=== PATIENT | female | born 1955 | race Two or more races ===

== ENCOUNTER 2019-12-21 07:55 | Outpatient (CLI) | payer OTHER ==
[~2019-12-21 07:55] MED LIST: AMARYL; CATAFLAM50 MG PO; COZAAR50 MG; COZAAR50 MG PO; DECADRON P4 MG/ML-1M IH; FLEXERIL10 MG PO; HUMALOG MI100 UNIT/1; HUMALOG MIX 75/10 ML; HUMALOG MIX 75/10 ML SUBCUTANEO; HUMALOG100 U/ML; HUMALOG100 U/ML SUBCUTANEO; INTESTINEX680 MG PO; LANTUS100 U/ML; LANTUS100 U/ML SUBCUTANEO; NAPR500T14 PO; NEURON; NEURONTIN300 MG PO; NEURONTIN600 MG PO; NOVOLOG100 U/ML; TORADOL60 MG IM; ZANTAC300 MG PO
== END 2019-12-21 15:10 | disposition home or self-care (01) ==
LOC: LAB 07:55
DX: M54.5 Low back pain (principal); E78.89 Other lipoprotein metabolism disorders; E03.8 Other specified hypothyroidism; M89.8X8 Other specified disorders of bone, other site; E11.51 Type 2 diabetes mellitus with diabetic peripheral angiopathy without gangrene; G62.89 Other specified polyneuropathies; E11.42 Type 2 diabetes mellitus with diabetic polyneuropathy; K21.9 Gastro-esophageal reflux disease without esophagitis; M54.14 Radiculopathy, thoracic region; F41.8 Other specified anxiety disorders; E11.65 Type 2 diabetes mellitus with hyperglycemia; G99.0 Autonomic neuropathy in diseases classified elsewhere; E11.319 Type 2 diabetes mellitus with unspecified diabetic retinopathy without macular edema; G83.4 Cauda equina syndrome; F39 Unspecified mood [affective] disorder; F32.1 Major depressive disorder, single episode, moderate; I11.9 Hypertensive heart disease without heart failure; I13.10 Hypertensive heart and chronic kidney disease without heart failure, with stage 1 through stage 4 chronic kidney disease, or unspecified chronic kidney disease; Z79.82 Long term (current) use of aspirin; Z79.84 Long term (current) use of oral hypoglycemic drugs; N18.3 Chronic kidney disease, stage 3 (moderate); Z13.5 Encounter for screening for eye and ear disorders; Z12.11 Encounter for screening for malignant neoplasm of colon; Z01.00 Encounter for examination of eyes and vision without abnormal findings; Z01.01 Encounter for examination of eyes and vision with abnormal findings; Z12.31 Encounter for screening mammogram for malignant neoplasm of breast; Z13.820 Encounter for screening for osteoporosis; N64.4 Mastodynia

== ENCOUNTER 2019-12-22 10:06 | Outpatient (CLI) | payer OTHER | END 2019-12-22 10:43 | disposition home or self-care (01) | LOC: NUCLEAR 10:06 | DX: M81.0 Age-related osteoporosis without current pathological fracture (principal); M54.5 Low back pain; I10 Essential (primary) hypertension; E78.89 Other lipoprotein metabolism disorders; E03.8 Other specified hypothyroidism; M89.8X0 Other specified disorders of bone, multiple sites; E11.9 Type 2 diabetes mellitus without complications; E11.51 Type 2 diabetes mellitus with diabetic peripheral angiopathy without gangrene; G62.89 Other specified polyneuropathies; E11.42 Type 2 diabetes mellitus with diabetic polyneuropathy; K21.9 Gastro-esophageal reflux disease without esophagitis; M54.14 Radiculopathy, thoracic region; F41.8 Other specified anxiety disorders; Z79.82 Long term (current) use of aspirin; Z79.84 Long term (current) use of oral hypoglycemic drugs; Z01.01 Encounter for examination of eyes and vision with abnormal findings ==

== ENCOUNTER → 2019-12-22 10:10 | Outpatient (CLI) | payer OTHER | END | disposition home or self-care (01) | LOC: LAB 10:10 | DX: M54.5 Low back pain (principal); E78.89 Other lipoprotein metabolism disorders; E03.8 Other specified hypothyroidism; M89.8X8 Other specified disorders of bone, other site; E11.51 Type 2 diabetes mellitus with diabetic peripheral angiopathy without gangrene; G62.89 Other specified polyneuropathies; E11.42 Type 2 diabetes mellitus with diabetic polyneuropathy; K21.9 Gastro-esophageal reflux disease without esophagitis; M54.14 Radiculopathy, thoracic region; F41.8 Other specified anxiety disorders; E11.65 Type 2 diabetes mellitus with hyperglycemia; Z79.4 Long term (current) use of insulin; G99.0 Autonomic neuropathy in diseases classified elsewhere; E11.319 Type 2 diabetes mellitus with unspecified diabetic retinopathy without macular edema; G83.4 Cauda equina syndrome; F39 Unspecified mood [affective] disorder; F32.1 Major depressive disorder, single episode, moderate; I11.9 Hypertensive heart disease without heart failure; I13.10 Hypertensive heart and chronic kidney disease without heart failure, with stage 1 through stage 4 chronic kidney disease, or unspecified chronic kidney disease; Z79.82 Long term (current) use of aspirin; N18.3 Chronic kidney disease, stage 3 (moderate); Z13.5 Encounter for screening for eye and ear disorders; Z12.11 Encounter for screening for malignant neoplasm of colon; Z01.00 Encounter for examination of eyes and vision without abnormal findings; Z01.01 Encounter for examination of eyes and vision with abnormal findings; Z12.31 Encounter for screening mammogram for malignant neoplasm of breast; Z13.820 Encounter for screening for osteoporosis; N64.4 Mastodynia ==

== ENCOUNTER 2019-12-22 11:25 | Outpatient (CLI) | payer OTHER | END 2019-12-22 11:29 | disposition home or self-care (01) | LOC: MAMO-SONO 11:25 | DX: I10 Essential (primary) hypertension (principal); M54.5 Low back pain; E78.89 Other lipoprotein metabolism disorders; E03.8 Other specified hypothyroidism; M89.8X8 Other specified disorders of bone, other site; E11.51 Type 2 diabetes mellitus with diabetic peripheral angiopathy without gangrene; G62.89 Other specified polyneuropathies; E11.42 Type 2 diabetes mellitus with diabetic polyneuropathy; K21.9 Gastro-esophageal reflux disease without esophagitis; M54.14 Radiculopathy, thoracic region; F41.8 Other specified anxiety disorders; Z12.31 Encounter for screening mammogram for malignant neoplasm of breast ==

== ENCOUNTER 2020-01-20 07:57 | Outpatient (CLI) | payer OTHER | END 2020-01-20 08:02 | disposition home or self-care (01) | LOC: SONOGRAMA 07:57 | DX: R10.84 Generalized abdominal pain (principal); N18.3 Chronic kidney disease, stage 3 (moderate); R31.29 Other microscopic hematuria ==

== ENCOUNTER → 2020-03-13 07:57 | Outpatient (CLI) | payer OTHER | END | disposition home or self-care (01) | LOC: LAB 07:57 | DX: E11.21 Type 2 diabetes mellitus with diabetic nephropathy (principal); D63.1 Anemia in chronic kidney disease; N30.00 Acute cystitis without hematuria; E03.8 Other specified hypothyroidism; E43 Unspecified severe protein-calorie malnutrition ==

== ENCOUNTER 2020-04-01 08:58 | Outpatient (CLI) | payer OTHER | END 2020-04-01 09:03 | disposition home or self-care (01) | LOC: LAB 08:58 | DX: M54.5 Low back pain (principal); E78.89 Other lipoprotein metabolism disorders; E03.8 Other specified hypothyroidism; M89.8X8 Other specified disorders of bone, other site; E11.51 Type 2 diabetes mellitus with diabetic peripheral angiopathy without gangrene; G62.89 Other specified polyneuropathies; E11.42 Type 2 diabetes mellitus with diabetic polyneuropathy; K21.9 Gastro-esophageal reflux disease without esophagitis; M54.14 Radiculopathy, thoracic region; F41.8 Other specified anxiety disorders; E11.65 Type 2 diabetes mellitus with hyperglycemia; Z79.4 Long term (current) use of insulin; G99.0 Autonomic neuropathy in diseases classified elsewhere; E11.319 Type 2 diabetes mellitus with unspecified diabetic retinopathy without macular edema; G83.4 Cauda equina syndrome; F39 Unspecified mood [affective] disorder; F32.1 Major depressive disorder, single episode, moderate; I11.9 Hypertensive heart disease without heart failure; I13.10 Hypertensive heart and chronic kidney disease without heart failure, with stage 1 through stage 4 chronic kidney disease, or unspecified chronic kidney disease; Z79.82 Long term (current) use of aspirin; N18.3 Chronic kidney disease, stage 3 (moderate); Z13.5 Encounter for screening for eye and ear disorders; Z12.11 Encounter for screening for malignant neoplasm of colon; Z01.00 Encounter for examination of eyes and vision without abnormal findings; Z12.31 Encounter for screening mammogram for malignant neoplasm of breast; Z13.820 Encounter for screening for osteoporosis; N64.4 Mastodynia ==

== ENCOUNTER 2020-06-20 08:04 | Outpatient (CLI) | payer OTHER | END 2020-06-20 15:00 | disposition home or self-care (01) | LOC: LAB 08:04 | PROVIDERS: ATTEND Specialist/Technologist, Other Nephrology | DX: E78.49 Other hyperlipidemia (principal); N18.3 Chronic kidney disease, stage 3 (moderate); E11.21 Type 2 diabetes mellitus with diabetic nephropathy; D63.1 Anemia in chronic kidney disease; N30.00 Acute cystitis without hematuria; E03.0 Congenital hypothyroidism with diffuse goiter ==

== ENCOUNTER 2020-06-24 10:17 | Outpatient (CLI) | payer OTHER | END 2020-06-24 12:07 | disposition home or self-care (01) | LOC: LAB 10:17 | PROVIDERS: ATTEND Specialist/Technologist, Other Nephrology | DX: N18.5 Chronic kidney disease, stage 5 (principal); Z12.89 Encounter for screening for malignant neoplasm of other sites; D63.1 Anemia in chronic kidney disease ==

== ENCOUNTER 2020-08-11 08:25 | Outpatient (CLI) | payer OTHER | END 2020-08-11 08:37 | disposition home or self-care (01) | LOC: LAB 08:25 | PROVIDERS: ATTEND Specialist/Technologist, Other Nephrology | DX: E78.89 Other lipoprotein metabolism disorders (principal); M54.5 Low back pain; E03.8 Other specified hypothyroidism; M89.8X8 Other specified disorders of bone, other site; E11.51 Type 2 diabetes mellitus with diabetic peripheral angiopathy without gangrene; G62.89 Other specified polyneuropathies; E11.42 Type 2 diabetes mellitus with diabetic polyneuropathy; K21.9 Gastro-esophageal reflux disease without esophagitis; M54.14 Radiculopathy, thoracic region; F41.8 Other specified anxiety disorders; E11.65 Type 2 diabetes mellitus with hyperglycemia; Z79.4 Long term (current) use of insulin; G99.0 Autonomic neuropathy in diseases classified elsewhere; E11.319 Type 2 diabetes mellitus with unspecified diabetic retinopathy without macular edema; G83.4 Cauda equina syndrome; F34.89 Other specified persistent mood disorders; F32.1 Major depressive disorder, single episode, moderate; I11.9 Hypertensive heart disease without heart failure; Z79.82 Long term (current) use of aspirin; Z79.84 Long term (current) use of oral hypoglycemic drugs; N18.3 Chronic kidney disease, stage 3 (moderate); Z13.5 Encounter for screening for eye and ear disorders; Z12.11 Encounter for screening for malignant neoplasm of colon; Z01.00 Encounter for examination of eyes and vision without abnormal findings; Z01.01 Encounter for examination of eyes and vision with abnormal findings; Z12.31 Encounter for screening mammogram for malignant neoplasm of breast; Z13.820 Encounter for screening for osteoporosis; N64.4 Mastodynia; E11.21 Type 2 diabetes mellitus with diabetic nephropathy; D63.1 Anemia in chronic kidney disease; N30.00 Acute cystitis without hematuria ==

== ENCOUNTER → 2020-09-22 | Outpatient (CLI) | payer OTHER | END | disposition home or self-care (01) | LOC: MAMO-SONO 07:15 → SONOGRAMA 07:26 | PROVIDERS: ATTEND Specialist/Technologist, Other Nephrology | DX: R10.84 Generalized abdominal pain (principal); D25.9 Leiomyoma of uterus, unspecified; R31.29 Other microscopic hematuria; N18.30 Chronic kidney disease, stage 3 unspecified ==

== ENCOUNTER → 2020-09-29 08:20 | Outpatient (CLI) | payer OTHER | END | disposition home or self-care (01) | LOC: LAB 08:20 | PROVIDERS: ATTEND Internal Medicine Hematology & Oncology | DX: E11.22 Type 2 diabetes mellitus with diabetic chronic kidney disease (principal); D63.1 Anemia in chronic kidney disease; D63.8 Anemia in other chronic diseases classified elsewhere; N18.5 Chronic kidney disease, stage 5; I12.0 Hypertensive chronic kidney disease with stage 5 chronic kidney disease or end stage renal disease ==

== ENCOUNTER 2020-10-11 08:51 | Outpatient (CLI) | payer OTHER | END 2020-10-11 15:00 | disposition home or self-care (01) | LOC: LAB 08:51 | PROVIDERS: ATTEND Specialist/Technologist, Other Nephrology | DX: E03.8 Other specified hypothyroidism (principal); E11.21 Type 2 diabetes mellitus with diabetic nephropathy; D63.1 Anemia in chronic kidney disease; N30.00 Acute cystitis without hematuria ==

== ENCOUNTER 2020-11-21 08:43 | Outpatient (CLI) | payer OTHER | END 2020-11-21 08:50 | disposition home or self-care (01) | LOC: LAB 08:43 | PROVIDERS: ATTEND Internal Medicine | DX: E03.8 Other specified hypothyroidism (principal); M54.5 Low back pain; E78.89 Other lipoprotein metabolism disorders; M89.8X8 Other specified disorders of bone, other site; E11.51 Type 2 diabetes mellitus with diabetic peripheral angiopathy without gangrene; G62.89 Other specified polyneuropathies; E11.42 Type 2 diabetes mellitus with diabetic polyneuropathy; K21.9 Gastro-esophageal reflux disease without esophagitis; M54.14 Radiculopathy, thoracic region; F41.8 Other specified anxiety disorders; E11.65 Type 2 diabetes mellitus with hyperglycemia; G99.0 Autonomic neuropathy in diseases classified elsewhere; E11.319 Type 2 diabetes mellitus with unspecified diabetic retinopathy without macular edema; G83.4 Cauda equina syndrome; F34.89 Other specified persistent mood disorders; F32.1 Major depressive disorder, single episode, moderate; I11.9 Hypertensive heart disease without heart failure; I13.10 Hypertensive heart and chronic kidney disease without heart failure, with stage 1 through stage 4 chronic kidney disease, or unspecified chronic kidney disease; Z79.82 Long term (current) use of aspirin; Z79.84 Long term (current) use of oral hypoglycemic drugs; Z13.5 Encounter for screening for eye and ear disorders; Z12.11 Encounter for screening for malignant neoplasm of colon; Z01.00 Encounter for examination of eyes and vision without abnormal findings; Z12.31 Encounter for screening mammogram for malignant neoplasm of breast; Z13.820 Encounter for screening for osteoporosis; N64.4 Mastodynia ==

== ENCOUNTER 2020-12-20 08:37 | Outpatient (CLI) | payer OTHER | END 2020-12-20 08:42 | disposition home or self-care (01) | LOC: LAB 08:37 | PROVIDERS: ATTEND Internal Medicine Hematology & Oncology | DX: E11.22 Type 2 diabetes mellitus with diabetic chronic kidney disease (principal); D63.1 Anemia in chronic kidney disease; D63.8 Anemia in other chronic diseases classified elsewhere; M05.89 Other rheumatoid arthritis with rheumatoid factor of multiple sites; I12.9 Hypertensive chronic kidney disease with stage 1 through stage 4 chronic kidney disease, or unspecified chronic kidney disease ==

== ENCOUNTER → 2020-12-28 09:42 | Outpatient (CLI) | payer OTHER | END | disposition home or self-care (01) | LOC: LAB 09:42 | PROVIDERS: ATTEND Internal Medicine Hematology & Oncology | DX: D50.8 Other iron deficiency anemias (principal) ==

== ENCOUNTER 2021-01-23 08:25 | Outpatient (CLI) | payer OTHER | END 2021-01-23 09:39 | disposition home or self-care (01) | LOC: LAB 08:25 | PROVIDERS: ATTEND Specialist/Technologist, Other Nephrology | DX: N11.8 Other chronic tubulo-interstitial nephritis (principal); E11.21 Type 2 diabetes mellitus with diabetic nephropathy; E21.3 Hyperparathyroidism, unspecified; D63.1 Anemia in chronic kidney disease; N30.00 Acute cystitis without hematuria; E03.8 Other specified hypothyroidism; B96.29 Other Escherichia coli [E. coli] as the cause of diseases classified elsewhere ==

== ENCOUNTER 2021-02-13 08:19 | Outpatient (CLI) | payer OTHER | END 2021-02-13 08:24 | disposition home or self-care (01) | LOC: LAB 08:19 | PROVIDERS: ATTEND Internal Medicine Hematology & Oncology | DX: D64.89 Other specified anemias (principal) ==

== ENCOUNTER 2021-02-20 08:19 | Outpatient (CLI) | payer OTHER | END 2021-02-20 08:20 | disposition home or self-care (01) | LOC: LAB 08:19 | PROVIDERS: ATTEND Internal Medicine Cardiovascular Disease | DX: E78.89 Other lipoprotein metabolism disorders (principal); E11.8 Type 2 diabetes mellitus with unspecified complications ==

== ENCOUNTER 2021-02-22 08:16 | Outpatient (CLI) | payer OTHER | END 2021-02-22 08:17 | disposition home or self-care (01) | LOC: LAB 08:16 | PROVIDERS: ATTEND Internal Medicine | DX: N18.4 Chronic kidney disease, stage 4 (severe) (principal); F32.1 Major depressive disorder, single episode, moderate; F39 Unspecified mood [affective] disorder; I11.9 Hypertensive heart disease without heart failure; I13.10 Hypertensive heart and chronic kidney disease without heart failure, with stage 1 through stage 4 chronic kidney disease, or unspecified chronic kidney disease; Z79.82 Long term (current) use of aspirin; K21.9 Gastro-esophageal reflux disease without esophagitis; M54.14 Radiculopathy, thoracic region; M54.5 Low back pain; G83.4 Cauda equina syndrome; G99.0 Autonomic neuropathy in diseases classified elsewhere; E03.8 Other specified hypothyroidism; Z79.4 Long term (current) use of insulin ==

== ENCOUNTER → 2021-05-09 08:21 | Outpatient (CLI) | payer OTHER | END | disposition home or self-care (01) | LOC: LAB 08:21 | PROVIDERS: ATTEND Specialist/Technologist, Other Nephrology | DX: E11.21 Type 2 diabetes mellitus with diabetic nephropathy (principal); D63.1 Anemia in chronic kidney disease; N30.00 Acute cystitis without hematuria; E03.9 Hypothyroidism, unspecified ==

== ENCOUNTER 2021-05-28 09:46 | Outpatient (CLI) | payer OTHER | END 2021-05-28 09:48 | disposition home or self-care (01) | LOC: LAB 09:46 | PROVIDERS: ATTEND Internal Medicine | DX: I11.9 Hypertensive heart disease without heart failure (principal); N18.4 Chronic kidney disease, stage 4 (severe); I13.10 Hypertensive heart and chronic kidney disease without heart failure, with stage 1 through stage 4 chronic kidney disease, or unspecified chronic kidney disease; E74.89 Other specified disorders of carbohydrate metabolism; N18.31 Chronic kidney disease, stage 3a; K21.9 Gastro-esophageal reflux disease without esophagitis; M54.14 Radiculopathy, thoracic region; E78.89 Other lipoprotein metabolism disorders; M54.5 Low back pain; G99.0 Autonomic neuropathy in diseases classified elsewhere; E03.8 Other specified hypothyroidism; Z79.4 Long term (current) use of insulin; D63.8 Anemia in other chronic diseases classified elsewhere; N18.6 End stage renal disease; I12.9 Hypertensive chronic kidney disease with stage 1 through stage 4 chronic kidney disease, or unspecified chronic kidney disease ==

== ENCOUNTER 2021-07-18 08:47 | Outpatient (CLI) | payer OTHER | END 2021-07-18 08:48 | disposition home or self-care (01) | LOC: LAB 08:47 | PROVIDERS: ATTEND Internal Medicine Hematology & Oncology | DX: D50.8 Other iron deficiency anemias (principal) ==

== ENCOUNTER → 2021-08-15 08:29 | Outpatient (CLI) | payer OTHER | END | disposition home or self-care (01) | LOC: LAB 08:29 | PROVIDERS: ATTEND Internal Medicine | DX: E03.8 Other specified hypothyroidism (principal); N18.4 Chronic kidney disease, stage 4 (severe); I11.9 Hypertensive heart disease without heart failure; I13.10 Hypertensive heart and chronic kidney disease without heart failure, with stage 1 through stage 4 chronic kidney disease, or unspecified chronic kidney disease; E74.89 Other specified disorders of carbohydrate metabolism; Z79.84 Long term (current) use of oral hypoglycemic drugs; E78.89 Other lipoprotein metabolism disorders; K21.9 Gastro-esophageal reflux disease without esophagitis; M54.14 Radiculopathy, thoracic region; M54.59 Other low back pain; G99.0 Autonomic neuropathy in diseases classified elsewhere; Z12.11 Encounter for screening for malignant neoplasm of colon; Z79.4 Long term (current) use of insulin; D63.8 Anemia in other chronic diseases classified elsewhere; N18.6 End stage renal disease; I12.9 Hypertensive chronic kidney disease with stage 1 through stage 4 chronic kidney disease, or unspecified chronic kidney disease; E55.9 Vitamin D deficiency, unspecified ==

== ENCOUNTER → 2021-08-16 09:03 | Outpatient (CLI) | payer OTHER | END | disposition home or self-care (01) | LOC: LAB 09:03 | PROVIDERS: ATTEND Emergency Medicine Pediatric Emergency Medicine | DX: I11.9 Hypertensive heart disease without heart failure (principal); N18.4 Chronic kidney disease, stage 4 (severe); I13.10 Hypertensive heart and chronic kidney disease without heart failure, with stage 1 through stage 4 chronic kidney disease, or unspecified chronic kidney disease; E74.89 Other specified disorders of carbohydrate metabolism; N18.30 Chronic kidney disease, stage 3 unspecified; E78.89 Other lipoprotein metabolism disorders; K21.9 Gastro-esophageal reflux disease without esophagitis; M54.14 Radiculopathy, thoracic region; M54.59 Other low back pain; G99.0 Autonomic neuropathy in diseases classified elsewhere; E03.8 Other specified hypothyroidism; Z79.4 Long term (current) use of insulin; D63.8 Anemia in other chronic diseases classified elsewhere; N18.6 End stage renal disease; I12.9 Hypertensive chronic kidney disease with stage 1 through stage 4 chronic kidney disease, or unspecified chronic kidney disease; Z12.11 Encounter for screening for malignant neoplasm of colon ==

== ENCOUNTER 2021-08-22 08:24 | Outpatient (CLI) | payer OTHER | END 2021-08-22 08:30 | disposition home or self-care (01) | LOC: LAB 08:24 | PROVIDERS: ATTEND Specialist/Technologist, Other Nephrology | DX: E03.8 Other specified hypothyroidism (principal); E78.49 Other hyperlipidemia; I12.9 Hypertensive chronic kidney disease with stage 1 through stage 4 chronic kidney disease, or unspecified chronic kidney disease; E11.21 Type 2 diabetes mellitus with diabetic nephropathy; D63.1 Anemia in chronic kidney disease; N30.00 Acute cystitis without hematuria ==

== ENCOUNTER → 2021-09-05 08:36 | Outpatient (CLI) | payer OTHER | END | disposition home or self-care (01) | LOC: LAB 08:36 | PROVIDERS: ATTEND Internal Medicine Hematology & Oncology | DX: D63.8 Anemia in other chronic diseases classified elsewhere (principal); N18.5 Chronic kidney disease, stage 5; D50.8 Other iron deficiency anemias; I12.9 Hypertensive chronic kidney disease with stage 1 through stage 4 chronic kidney disease, or unspecified chronic kidney disease; E11.22 Type 2 diabetes mellitus with diabetic chronic kidney disease ==

== ENCOUNTER 2021-10-16 08:24 | Outpatient (CLI) | payer OTHER | END 2021-10-16 08:26 | disposition home or self-care (01) | LOC: LAB 08:24 | PROVIDERS: ATTEND Internal Medicine Hematology & Oncology | DX: D63.8 Anemia in other chronic diseases classified elsewhere (principal); D50.8 Other iron deficiency anemias ==

== ENCOUNTER → 2021-10-23 08:46 | Outpatient (CLI) | payer OTHER | END | disposition home or self-care (01) | LOC: LAB 08:46 | PROVIDERS: ATTEND Specialist/Technologist, Other Nephrology | DX: E78.49 Other hyperlipidemia (principal); E21.3 Hyperparathyroidism, unspecified; N18.30 Chronic kidney disease, stage 3 unspecified; E11.21 Type 2 diabetes mellitus with diabetic nephropathy; E63.1 Imbalance of constituents of food intake; N30.00 Acute cystitis without hematuria; E03.8 Other specified hypothyroidism; I12.9 Hypertensive chronic kidney disease with stage 1 through stage 4 chronic kidney disease, or unspecified chronic kidney disease ==

== ENCOUNTER 2021-11-11 15:02 | Inpatient (IN) | payer OTHER | END 2021-11-21 15:14 | DRG 65 | LOC: ER 15:02 → ICU-2 11-12 11:19 → MEDI 11-18 21:01 → MEDJ 11-20 22:22 | PROVIDERS: ADMIT Internal Medicine; ATTEND Internal Medicine | PROC: BW28ZZZ Computerized Tomography (CT Scan) of Head (ICD-10-PCS; 2021-11-12) | PROC: B24BZZZ Ultrasonography of Heart with Aorta (ICD-10-PCS; 2021-11-13) | PROC: BW38ZZZ Magnetic Resonance Imaging (MRI) of Head (ICD-10-PCS; 2021-11-14) | PROC: 4A12X4Z Monitoring of Cardiac Electrical Activity, External Approach (ICD-10-PCS; principal; 2021-11-18) | DX: I63.9 Cerebral infarction, unspecified (principal); I69.354 Hemiplegia and hemiparesis following cerebral infarction affecting left non-dominant side; N39.0 Urinary tract infection, site not specified; N18.4 Chronic kidney disease, stage 4 (severe); N17.8 Other acute kidney failure; I69.320 Aphasia following cerebral infarction; I67.81 Acute cerebrovascular insufficiency; I70.0 Atherosclerosis of aorta; I34.0 Nonrheumatic mitral (valve) insufficiency; R47.1 Dysarthria and anarthria; E11.65 Type 2 diabetes mellitus with hyperglycemia; E11.21 Type 2 diabetes mellitus with diabetic nephropathy; Z79.4 Long term (current) use of insulin; I12.9 Hypertensive chronic kidney disease with stage 1 through stage 4 chronic kidney disease, or unspecified chronic kidney disease; E11.22 Type 2 diabetes mellitus with diabetic chronic kidney disease; D63.8 Anemia in other chronic diseases classified elsewhere; Z20.822 Contact with and (suspected) exposure to COVID-19; I25.10 Atherosclerotic heart disease of native coronary artery without angina pectoris | CPT/HCPCS: 70544 ==

== ENCOUNTER 2021-12-18 12:05 | Emergency (ER) | payer OTHER ==
[~2021-12-18] VITALS: Ht 160 cm; Wt 72.6 kg
== END 2021-12-18 19:08 | disposition home or self-care (01) ==
LOC: ER 12:05
DX: E11.641 Type 2 diabetes mellitus with hypoglycemia with coma (principal); Z79.4 Long term (current) use of insulin

== ENCOUNTER 2022-01-02 08:48 | Outpatient (CLI) | payer OTHER | END 2022-01-02 08:51 | disposition home or self-care (01) | LOC: LAB 08:48 | PROVIDERS: ATTEND Specialist/Technologist, Other Nephrology | DX: E21.3 Hyperparathyroidism, unspecified (principal) ==

== ENCOUNTER 2022-02-18 20:26 | Inpatient (IN) | payer OTHER ==
[~2022-02-18] VITALS: Ht 157.5 cm; Wt 77.1 kg
[2022-02-19] MEDS ORDERED: HYDRALAZINE HCL50 MG (11:25)
[2022-02-19] MEDS ORDERED: AMLODIPINE BESY10 MG (11:25)
[2022-02-19] MEDS ORDERED: CARVEDILOL6.25 M1 (11:25)
[2022-02-19] MEDS ORDERED: CLONIDINE HCL0.1 MG (11:25)
[2022-02-19] MEDS ORDERED: FERROUS SULFAT325 MG (11:25)
[2022-02-19] MEDS ORDERED: FAMOTIDINE20 MG (11:25)
[2022-02-19] MEDS ORDERED: CLOPIDOGREL BIS75 MG (11:25)
[2022-02-19] MEDS ORDERED: FOLIC ACID1 MG (11:26)
[2022-02-19] MEDS ORDERED: LATANOPROST2.5 ML (11:26)
[2022-02-19] MEDS ORDERED: ALLOPURINOL100 MG (11:26)
[2022-02-19] MEDS ORDERED: ATORVASTATIN CA40 MG (11:26)
[2022-02-19] MEDS ORDERED: ST. JOSEPH ASPI81 M2 (11:26)
[2022-02-19] MEDS ORDERED: HUMULIN 70100 UNIT/2 (11:26)
[2022-03-04] MEDS ORDERED: CARVEDILOL6.25 MG PO (15:54)
[2022-03-04] MEDS ORDERED: ZYLOPRIM100 M1 PO (15:54)
[2022-03-04] MEDS ORDERED: AMLODIPINE BESYL5 MG PO (15:54)
[2022-03-04] MEDS ORDERED: LIPITOR20 MG PO (15:54)
[2022-03-04] MEDS ORDERED: CLOPIDOGREL BIS75 MG PO (15:54)
== END 2022-03-04 19:00 | disposition home or self-care (01) | DRG 682 ==
LOC: ER 20:26 → MEDJ 02-19 07:52 → MEDI 02-19 07:52 → MEDJ 02-19 16:05 → MEDI 02-20 07:44
PROVIDERS: ADMIT Internal Medicine; ATTEND Internal Medicine
PROC: 4A12X4Z Monitoring of Cardiac Electrical Activity, External Approach (ICD-10-PCS; 2022-02-19)
PROC: 30233N1 Transfusion of Nonautologous Red Blood Cells into Peripheral Vein, Percutaneous Approach (ICD-10-PCS; principal; 2022-02-20)
PROC: 5A1D70Z Performance of Urinary Filtration, Intermittent, Less than 6 Hours Per Day (ICD-10-PCS; 2022-02-21)
PROC: 05HM33Z Insertion of Infusion Device into Right Internal Jugular Vein, Percutaneous Approach (ICD-10-PCS; 2022-02-26)
PROC: B54PZZZ Ultrasonography of Bilateral Upper Extremity Veins (ICD-10-PCS; 2022-02-26)
PROC: 5A1D70Z Performance of Urinary Filtration, Intermittent, Less than 6 Hours Per Day (ICD-10-PCS; 2022-03-01)
DX: I12.0 Hypertensive chronic kidney disease with stage 5 chronic kidney disease or end stage renal disease (principal); N18.6 End stage renal disease; K85.80 Other acute pancreatitis without necrosis or infection; N17.8 Other acute kidney failure; E87.2 Acidosis; D63.1 Anemia in chronic kidney disease; E11.22 Type 2 diabetes mellitus with diabetic chronic kidney disease; Z99.2 Dependence on renal dialysis; Z79.4 Long term (current) use of insulin; Z20.822 Contact with and (suspected) exposure to COVID-19; I70.0 Atherosclerosis of aorta; I35.1 Nonrheumatic aortic (valve) insufficiency

== ENCOUNTER 2022-03-28 13:05 | Outpatient (CLI) | payer OTHER ==
[~2022-03-28 13:05] MED LIST changes: +ALLOPURINOL100 MG; +AMLODIPINE BESY10 MG; +AMLODIPINE BESYL5 MG PO; +ATORVASTATIN CA40 MG; +CARVEDILOL6.25 M1; +CARVEDILOL6.25 MG PO; +CLONIDINE HCL0.1 MG; +CLOPIDOGREL BIS75 MG; +CLOPIDOGREL BIS75 MG PO; +FAMOTIDINE20 MG; +FERROUS SULFAT325 MG; +FOLIC ACID1 MG; +HUMULIN 70100 UNIT/2; +HYDRALAZINE HCL50 MG; +LATANOPROST2.5 ML; +LIPITOR20 MG PO; +ST. JOSEPH ASPI81 M2; +ZYLOPRIM100 M1 PO
== END 2022-03-28 13:06 | disposition home or self-care (01) ==
LOC: NUCLEAR 13:05
PROVIDERS: ATTEND Internal Medicine
DX: M81.0 Age-related osteoporosis without current pathological fracture (principal)

== ENCOUNTER 2022-04-02 13:17 | Outpatient (CLI) | payer OTHER | END 2022-04-02 13:18 | disposition home or self-care (01) | LOC: MAMO-SONO 13:17 | PROVIDERS: ATTEND Internal Medicine | DX: I13.10 Hypertensive heart and chronic kidney disease without heart failure, with stage 1 through stage 4 chronic kidney disease, or unspecified chronic kidney disease (principal); N18.4 Chronic kidney disease, stage 4 (severe); I11.9 Hypertensive heart disease without heart failure; E74.9 Disorder of carbohydrate metabolism, unspecified; Z79.84 Long term (current) use of oral hypoglycemic drugs; N18.30 Chronic kidney disease, stage 3 unspecified; E78.9 Disorder of lipoprotein metabolism, unspecified; K21.9 Gastro-esophageal reflux disease without esophagitis; M54.14 Radiculopathy, thoracic region; M54.50 Low back pain, unspecified; G99.0 Autonomic neuropathy in diseases classified elsewhere; E03.9 Hypothyroidism, unspecified ==

== ENCOUNTER 2023-07-23 13:39 | Outpatient (CLI) | payer OTHER | END 2023-07-23 13:41 | disposition home or self-care (01) | LOC: MAMO-SONO 13:39 | PROVIDERS: ATTEND Internal Medicine | DX: N60.11 Diffuse cystic mastopathy of right breast (principal); Z12.31 Encounter for screening mammogram for malignant neoplasm of breast ==

== ENCOUNTER 2025-02-28 11:34 | Outpatient (CLI) | payer OTHER | END 2025-02-28 11:35 | disposition home or self-care (01) | LOC: NUCLEAR 11:34 | PROVIDERS: ATTEND Internal Medicine | DX: M54.14 Radiculopathy, thoracic region (principal); M81.0 Age-related osteoporosis without current pathological fracture ==

== ENCOUNTER 2025-08-25 07:25 | Emergency (ER) | payer OTHER ==
[~2025-08-25] VITALS: Ht 165.1 cm; Wt 72.6 kg
[2025-08-25 09:10] LABS: BASO % 0.1 % (0.1-1.2); EOS # 0.01 (0.04-0.54); EOS % 0.1 % (0.7-7.0); LYMPH # 1.25 (1.18-3.74); LYMPH % 8.8 % (19.3-53.1); MEAN PLATELET VOLUME 10.50 fl (9.4-12.4); MONO # 0.97 (0.24-0.82); MONO % 6.8 % (4.7-12.5); NEUT # 11.89 (1.56-6.13); NEUT % 83.6 % (34.0-71.1); RED CELL DISTRIBUTION WIDTH 15.3 % (11.6-14.4)
[2025-08-25 09:51] LABS: ALT/SGPT 20 U/L (12-78); AST/SGOT 13 U/L (15-37); BILIRUBIN TOTAL 0.40 mg/dL (0.3-1.2); GLOBULINA 2.8 G/DL (2.4-3.5)
[2025-08-25 09:56] LABS: BUN CREA RATIO 7 (7.0-25.0); GFR 6.36; GLUCOSE FASTING 357 mg/dL (65-100); OSMOLALITY SERUM 301 MOSM/KG (275-295)
[2025-08-25 10:04] LABS: CREATININE SERUM 6.45 mg/dL (0.55-1.02)
[2025-08-25] MEDS ORDERED: INSULIN REGULAR, HUMAN 1,000 UNIT/10 ML UNITS IV STA (10:12)
[2025-08-25 11:44] LABS: D DIMER 2.39 MG/L
[2025-08-25 11:49] LABS: INR 1.1
== END 2025-08-25 14:39 | disposition home or self-care (01) ==
LOC: ER 07:25
PROVIDERS: Physician Assistant Medical
DX: R55 Syncope and collapse (principal); E11.22 Type 2 diabetes mellitus with diabetic chronic kidney disease; E11.65 Type 2 diabetes mellitus with hyperglycemia; I12.0 Hypertensive chronic kidney disease with stage 5 chronic kidney disease or end stage renal disease; N18.6 End stage renal disease; Z99.2 Dependence on renal dialysis; Z79.4 Long term (current) use of insulin; Z86.73 Personal history of transient ischemic attack (TIA), and cerebral infarction without residual deficits
CPT/HCPCS: 36415; 70450; 71046; 93005; 96365; 99284; J1815